=== PATIENT | male | born 1950 | race Caucasian/White ===

== ENCOUNTER 2019-02-02 13:19 | Emergency (ER) | payer MEDICARE ==
[~2019-02-02] VITALS: Ht 177.8 cm; Wt 95.5 kg
[~2019-02-02 13:19] MED LIST: DULO30CA51 PO; LEVO25TA7 PO; METF-950 PO; METO-292 PO; PROM25TA14 PO; RANI300T4 PO
[2019-02-02 13:55] LABS: BASOPHILS % (AUTO) 0.7 % (0-1); EOSINOPHILS # (AUTO) 0.1 X10'3 (0-0.9); EOSINOPHILS % (AUTO) 1.4 % (0-6); HEMATOCRIT 41.1 % (42.0-52.0); HEMOGLOBIN 14.1 g/dl (14.0-17.9); LYMPHOCYTES # (AUTO) 1.2 X10'3 (1.1-4.8); LYMPHOCYTES % (AUTO) 17.3 % (21-51); MEAN CORPUSCULAR HEMOGLOBIN 32.5 PG (27.0-31.0); MEAN CORPUSCULAR HGB CONC 34.3 g/dL (33.0-36.5); MEAN CORPUSCULAR VOLUME 94.6 FL (78-98); MONOCYTES # (AUTO) 0.9 X10'3 (0-0.9); MONOCYTES % (AUTO) 12.6 % (2-12); NEUTROPHILS # (AUTO) 4.7 X10'3 (1.8-7.7); PLATELET COUNT 224 X10'3 (140-440); RED BLOOD COUNT 4.34 X10'6 (4.70-6.10); RED CELL DISTRIBUTION WIDTH 13.3 % (11.5-14.5)
[2019-02-02 14:19] LABS: ALANINE AMINOTRANSFERASE 28 U/L (12-78); ALBUMIN 3.6 G/DL (3.4-5.0); ALBUMIN/GLOBULIN RATIO 1.1 (1.1-1.5); ALKALINE PHOSPHATASE 84 IU/L (46-116); ANION GAP 6 (8-16); ASPARTATE AMINO TRANSFERASE 17 U/L (10-37); BLOOD UREA NITROGEN 17 MG/DL (7-18); CHLORIDE 106 MMOL/L (99-107); CREATININE 0.81 MG/DL (0.60-1.10); GLUCOSE 123 MG/DL (70-104); POTASSIUM 3.9 MMOL/L (3.5-5.1); SODIUM 141 MMOL/L (135-145); TOTAL CARBON DIOXIDE 29.1 MMOL/L (24-32); TOTAL PROTEIN 6.9 G/DL (6.4-8.2); eGFR > 90 ML/MIN
[2019-02-02 14:25] LABS: PARTIAL THROMBOPLASTIN TIME 26 SECONDS (22-32)
[2019-02-02 17:08] VITALS: BP 160/94
== END 2019-02-02 17:16 | disposition home or self-care (01) ==
LOC: ER 13:20
DX: R00.1 Bradycardia, unspecified (principal); R07.89 Other chest pain; R42 Dizziness and giddiness; R53.83 Other fatigue; K21.9 Gastro-esophageal reflux disease without esophagitis; E11.9 Type 2 diabetes mellitus without complications; E03.9 Hypothyroidism, unspecified; Z90.49 Acquired absence of other specified parts of digestive tract; F12.90 Cannabis use, unspecified, uncomplicated; Z79.84 Long term (current) use of oral hypoglycemic drugs; Z79.899 Other long term (current) drug therapy
CPT/HCPCS: 36415; 71045; 80053; 84484; 85025; 85610; 85730; 93005; 99284

== ENCOUNTER 2024-08-28 14:05 | Observation (INO) | payer MEDICARE, MEDICAID ==
[~2024-08-28] VITALS: Ht 172.7 cm; Wt 80.0 kg
[~2024-08-28 14:05] MED LIST changes: -DULO30CA51 PO; +DULO30CA52 PO; +METF-1203 PO; -METF-950 PO
[2024-08-28 14:48] LABS: BASOPHILS % (AUTO) 0.5 % (0-1); EOSINOPHILS # (AUTO) 0.1 X10'3 (0-0.9); EOSINOPHILS % (AUTO) 2.2 % (0-6); HEMATOCRIT 40.6 % (42.0-52.0); HEMOGLOBIN 13.8 g/dl (14.0-17.9); LYMPHOCYTES # (AUTO) 1.1 X10'3 (1.1-4.8); LYMPHOCYTES % (AUTO) 18.5 % (21-51); MEAN CORPUSCULAR HEMOGLOBIN 32.5 PG (27.0-31.0); MEAN CORPUSCULAR HGB CONC 33.9 g/dL (33.0-36.5); MEAN CORPUSCULAR VOLUME 95.9 FL (78-98); MEAN PLATELET VOLUME 6.5 FL (7.4-10.4); MONOCYTES # (AUTO) 0.7 X10'3 (0-0.9); MONOCYTES % (AUTO) 11.2 % (2-12); NEUTROPHILS # (AUTO) 4.1 X10'3 (1.8-7.7); NEUTROPHILS % (AUTO) 67.6 % (42-75); PLATELET COUNT 268 X10'3 (140-440); RED BLOOD COUNT 4.23 X10'6 (4.70-6.10); RED CELL DISTRIBUTION WIDTH 13.8 % (11.5-14.5); WHITE BLOOD COUNT 6.1 X10'3 (4.5-11.0)
[2024-08-28 15:01] LABS: ALANINE AMINOTRANSFERASE 24 U/L (12-78); ALBUMIN 3.8 G/DL (3.4-5.0); ALBUMIN/GLOBULIN RATIO 1.4 (1.1-1.5); ALKALINE PHOSPHATASE 71 IU/L (46-116); ANION GAP 8 (8-16); ASPARTATE AMINO TRANSFERASE 19 U/L (10-37); BILIRUBIN,TOTAL 0.9 MG/DL (0.1-1.0); BLOOD UREA NITROGEN 13 MG/DL (7-18); BUN/CREATININE RATIO 19.4 (10.0-20.0); CALCIUM 8.3 MG/DL (8.5-10.1); CHLORIDE 105 MMOL/L (99-107); CREATININE 0.67 MG/DL (0.60-1.10); POTASSIUM 4.2 MMOL/L (3.5-5.1); SODIUM 140 MMOL/L (135-145); TOTAL CARBON DIOXIDE 26.9 MMOL/L (24-32); TOTAL PROTEIN 6.6 G/DL (6.4-8.2); eCRCL 95 ML/MIN; eGFR > 90 ML/MIN
[2024-08-28 15:13] LABS: GLUCOSE 101 MG/DL (70-104)
[2024-08-28] MEDS ORDERED: magnesium sulf-water 2g/50mL 50 ML IV PRN (19:05)
[2024-08-28] MEDS ORDERED: magnesium Cl slow-release 64mg tablet PO PRN (19:05)
[2024-08-28] MEDS ORDERED: potassium Cl 20 mEq SR tablet PO PRN ×2 (19:05)
[2024-08-28] MEDS ORDERED: ondansetron/PF 4mg/2ml inj IV PRN (19:05)
[2024-08-28] MEDS ORDERED: metoclopramide 5 mg/ml inj IV PRN (19:05)
[2024-08-28] MEDS ORDERED: acetaminophen 325mg tablet PO PRN (19:05)
[2024-08-28] MEDS ORDERED: magnesium sulf-water 4G/100mL 100 ML IV PRN (19:05)
[2024-08-28] MEDS ORDERED: potassium Cl 40MEQ/1/2NS 520ml 520 ML IV PRN (19:05)
[2024-08-28] MEDS: PERFLUTREN PROTEIN-A MICROSPHR (Optison) 0.22 MG/ML 3ML VIAL IV ONE (19:27)
[2024-08-28] MEDS: normal saline 1000ml 1,000 ML IV SCH (19:41)
[2024-08-28] MEDS: K and/or MAG REPLACEMENT MC SCH (20:00)
[2024-08-29 03:10] VITALS: BP_SYST 133; BP_SYST 134; BP_SYST 148; BP_DIAS 60; BP_DIAS 68; BP_DIAS 70; PULSE 55; PULSE 57; PULSE 59
[2024-08-29 06:00] VITALS: BP 145/74; PULSE 68; RESP 16; TEMP 98.1; O2SAT 98
[2024-08-29 07:13] LABS: BASOPHILS % (AUTO) 0.8 % (0-1); EOSINOPHILS # (AUTO) 0.1 X10'3 (0-0.9); HEMATOCRIT 41.3 % (42.0-52.0); LYMPHOCYTES # (AUTO) 1.7 X10'3 (1.1-4.8); LYMPHOCYTES % (AUTO) 27.1 % (21-51); MEAN CORPUSCULAR HEMOGLOBIN 32.2 PG (27.0-31.0); MEAN CORPUSCULAR HGB CONC 33.8 g/dL (33.0-36.5); MEAN CORPUSCULAR VOLUME 95.4 FL (78-98); MEAN PLATELET VOLUME 6.9 FL (7.4-10.4); MONOCYTES # (AUTO) 0.7 X10'3 (0-0.9); MONOCYTES % (AUTO) 11.2 % (2-12); NEUTROPHILS # (AUTO) 3.6 X10'3 (1.8-7.7); NEUTROPHILS % (AUTO) 58.9 % (42-75); PLATELET COUNT 276 X10'3 (140-440); RED BLOOD COUNT 4.34 X10'6 (4.70-6.10); WHITE BLOOD COUNT 6.1 X10'3 (4.5-11.0)
[2024-08-29 08:00] VITALS: BP_SYST 137; BP_SYST 144; BP_SYST 145; BP_DIAS 66; BP_DIAS 69; BP_DIAS 77; PULSE 57; PULSE 62; RESP 16; O2SAT 98
[2024-08-29 08:17] LABS: ALBUMIN 3.7 G/DL (3.4-5.0); ANION GAP 8 (8-16); BLOOD UREA NITROGEN 11 MG/DL (7-18); BUN/CREATININE RATIO 15.9 (10.0-20.0); CALCIUM 8.4 MG/DL (8.5-10.1); CHLORIDE 108 MMOL/L (99-107); CREATININE 0.69 MG/DL (0.60-1.10); GLUCOSE 99 MG/DL (70-104); POTASSIUM 4.1 MMOL/L (3.5-5.1); SODIUM 143 MMOL/L (135-145); TOTAL CARBON DIOXIDE 26.7 MMOL/L (24-32); eCRCL 92 ML/MIN; eGFR > 90 ML/MIN
[2024-08-29 10:00] VITALS: BP 110/71; PULSE 58; RESP 18; TEMP 98.3; O2SAT 96
[2024-08-29] MEDS: LORazepam 2 mg/ml vial IV ONE (11:59)
[2024-08-29] MEDS ORDERED: EMPA25TA PO (17:39)
[2024-08-29] MEDS ORDERED: GABA-530 PO (17:39)
[2024-08-29] MEDS ORDERED: VENL37.589 PO (17:39)
[2024-08-29] MEDS: venlafaxine XR 37.5mg cap (Q24H) PO SCH (17:45)
[2024-08-29] MEDS: gabapentin 100mg capsule PO SCH (20:21)
[2024-08-29 22:00] VITALS: BP 122/53; PULSE 53; RESP 16; TEMP 98.2; O2SAT 97
[2024-08-30 06:00] VITALS: BP 136/80; PULSE 83; RESP 16; TEMP 97; O2SAT 97
[2024-08-30 06:42] LABS: BASOPHILS % (AUTO) 0.7 % (0-1); EOSINOPHILS # (AUTO) 0.1 X10'3 (0-0.9); EOSINOPHILS % (AUTO) 2.3 % (0-6); HEMATOCRIT 41.3 % (42.0-52.0); LYMPHOCYTES # (AUTO) 1.5 X10'3 (1.1-4.8); LYMPHOCYTES % (AUTO) 24.1 % (21-51); MEAN CORPUSCULAR HEMOGLOBIN 32.6 PG (27.0-31.0); MEAN CORPUSCULAR HGB CONC 33.9 g/dL (33.0-36.5); MEAN CORPUSCULAR VOLUME 96.1 FL (78-98); MEAN PLATELET VOLUME 6.9 FL (7.4-10.4); MONOCYTES # (AUTO) 0.7 X10'3 (0-0.9); MONOCYTES % (AUTO) 11.3 % (2-12); NEUTROPHILS # (AUTO) 3.7 X10'3 (1.8-7.7); NEUTROPHILS % (AUTO) 61.6 % (42-75); PLATELET COUNT 271 X10'3 (140-440); RED BLOOD COUNT 4.29 X10'6 (4.70-6.10); RED CELL DISTRIBUTION WIDTH 14.3 % (11.5-14.5); WHITE BLOOD COUNT 6.1 X10'3 (4.5-11.0)
[2024-08-30 07:12] LABS: ANION GAP 11 (8-16); BLOOD UREA NITROGEN 12 MG/DL (7-18); BUN/CREATININE RATIO 16.7 (10.0-20.0); CALCIUM 8.7 MG/DL (8.5-10.1); CHLORIDE 107 MMOL/L (99-107); CREATININE 0.72 MG/DL (0.60-1.10); GLUCOSE 122 MG/DL (70-104); POTASSIUM 3.9 MMOL/L (3.5-5.1); SODIUM 142 MMOL/L (135-145); TOTAL CARBON DIOXIDE 23.9 MMOL/L (24-32); eCRCL 88 ML/MIN; eGFR > 90 ML/MIN
[2024-08-30 07:13] LABS: ALBUMIN 3.4 G/DL (3.4-5.0)
[2024-08-30 10:00] VITALS: BP 114/65; PULSE 63; RESP 12; TEMP 98.5; O2SAT 94
== END 2024-08-30 15:20 | disposition home or self-care (01) ==
LOC: ER 14:05 → ED HOLD 19:08 → EDBEDREQ 08-29 01:12 → ORTHO 4S 08-29 02:12
PROVIDERS: ADMIT Internal Medicine; ATTEND Internal Medicine
DX: R55 Syncope and collapse (principal); E11.649 Type 2 diabetes mellitus with hypoglycemia without coma; E11.51 Type 2 diabetes mellitus with diabetic peripheral angiopathy without gangrene; E11.40 Type 2 diabetes mellitus with diabetic neuropathy, unspecified; E03.9 Hypothyroidism, unspecified; E78.00 Pure hypercholesterolemia, unspecified; K21.9 Gastro-esophageal reflux disease without esophagitis; F32.A Depression, unspecified; F02.83 Dementia in other diseases classified elsewhere, unspecified severity, with mood disturbance; G30.9 Alzheimer's disease, unspecified; I11.0 Hypertensive heart disease with heart failure; I50.9 Heart failure, unspecified; I25.2 Old myocardial infarction; I25.10 Atherosclerotic heart disease of native coronary artery without angina pectoris; Z79.84 Long term (current) use of oral hypoglycemic drugs; Z86.73 Personal history of transient ischemic attack (TIA), and cerebral infarction without residual deficits; Z95.1 Presence of aortocoronary bypass graft; Z86.74 Personal history of sudden cardiac arrest
CPT/HCPCS: 70551; 80048; 80053; 83036; 83735; 84484; 93005; 93306; 93880; 96361; 96374; 97161; 99291; G0378; 36415; 71045; 85025; 87081; 97530; J2060; J7030

== ENCOUNTER 2025-01-22 05:31 | Inpatient (IN) | payer MEDICARE, MEDICAID ==
[2025-01-13 11:47] LABS: BASOPHILS % (AUTO) 0.7 % (0-1); EOSINOPHILS # (AUTO) 0.1 X10'3 (0-0.9); EOSINOPHILS % (AUTO) 1.4 % (0-6); LYMPHOCYTES # (AUTO) 1.1 X10'3 (1.1-4.8); LYMPHOCYTES % (AUTO) 25.8 % (21-51); MEAN CORPUSCULAR HEMOGLOBIN 31.9 PG (27.0-31.0); MEAN CORPUSCULAR HGB CONC 34.4 g/dL (33.0-36.5); MEAN CORPUSCULAR VOLUME 92.9 FL (78-98); MEAN PLATELET VOLUME 6.7 FL (7.4-10.4); MONOCYTES # (AUTO) 0.5 X10'3 (0-0.9); MONOCYTES % (AUTO) 11.6 % (2-12); NEUTROPHILS # (AUTO) 2.7 X10'3 (1.8-7.7); NEUTROPHILS % (AUTO) 60.5 % (42-75); PRE OP HEMATOCRIT 45.6 % (42.0-52.0); PRE OP HEMOGLOBIN 15.7 g/dL (14.0-17.9); PRE OP PLATELET COUNT 212 X10'3 (140-440); PRE OP WHITE BLOOD COUNT 4.5 10'3 (4.8-10.8); RED BLOOD COUNT 4.91 X10'6 (4.70-6.10); RED CELL DISTRIBUTION WIDTH 13.6 % (11.5-14.5)
--- NOTE | 2025-01-13 11:50 | ELECTROCARDIOGRAPH REPORT ---
[facility] Test Date: 2025-01-13 Test Time: 11:47:01 Pat Name: NICHOLAS LUCERO Department: PRE/OP CARDIOLOGY Patient ID: [id number] Room: Gender: M Ready To Wear Department Manager: SAMMY : 1950 Requested By: DEBBIE MONTENEGRO Order Number: [id number] Reading MD: Dr. NAMRATA Woods Measurements Intervals [place] Rate: 53 P: 71 WI: 212 QRS: 71 QRSD: 101 T: -15 QT: 428 QTc: 402 Interpretive Statements Sinus bradycardia Borderline prolonged WI interval Borderline T abnormalities, inferior leads Electronically Signed On 01-13-2025 20:04:[address] NAMRATA Woods Please click the below link to view image of tracing.
[2025-01-13 12:01] LABS: PRE OP PROTIME 10.7 SECONDS (9.0-12.0)
[2025-01-13 12:04] LABS: ALBUMIN 4.1 G/DL (3.4-5.0); ALBUMIN/GLOBULIN RATIO 1.3 (1.1-1.5); ALKALINE PHOSPHATASE 61 IU/L (46-116); BLOOD UREA NITROGEN 21 MG/DL (7-18); BUN/CREATININE RATIO 22.1 (10.0-20.0); CALCIUM 8.6 MG/DL (8.5-10.1); CHLORIDE 100 MMOL/L (99-107); CREATININE 0.95 MG/DL (0.60-1.10); PRE OP ALT 32 U/L (30-65); PRE OP ANION GAP 9 (8-16); PRE OP AST 29 U/L (10-37); PRE OP BILIRUB, TOTAL 1.5 MG/DL (0.0-1.0); PRE OP GLUCOSE 110 MG/DL (70-104); PRE OP POTASSIUM 3.7 MMOL/L (3.4-5.1); PRE OP SODIUM 138 MMOL/L (135-145); TOTAL CARBON DIOXIDE 28.8 MMOL/L (24-32); TOTAL PROTEIN 7.3 G/DL (6.4-8.2); eGFR 77 ML/MIN
[2025-01-13 12:31] LABS: BILIRUBIN,URINE NEGATIVE (Neg); CLARITY,URINE CLEAR (Clear); COLOR,URINE YELLOW (Yellow); GLUCOSE, URINE >=1000 mg/dl (Neg); KETONES,URINE 40 mg/dl (Neg); LEUKOCYTE ESTERASE ,URINE NEGATIVE (Neg); NITRITES, URINE NEGATIVE (Neg); OCCULT BLOOD,URINE NEGATIVE (Neg); PROTEIN,URINE NEGATIVE (Neg); UROBILINOGEN,URINE 0.2 E.U/dL (0.2-1.0)
[2025-01-13 12:33] LABS: UA COLLECTION TYPE VOIDED
[2025-01-13 12:41] LABS: BACTERIA,URINE NONE SEEN /HPF (Neg); MUCUS STRANDS NONE SEEN /LPF (Neg); RBC,URINE NONE SEEN /HPF (0-2); SQUAMOUS EPITHELIAL CELL,UR FEW /LPF (FEW); WBC,URINE NONE SEEN /HPF (0-4)
--- NOTE | 2025-01-13 12:57 | RADIOLOGY REPORT ---
DI CHEST,TWO VIEWS, HISTORY: PREOP COMPARISON: None None TECHNICAL DATA: 2 view of the chest was obtained. FINDINGS: Lines and tubes: None Cardiomediastinal silhouette: normal Pulmonary vasculature: normal Lung expansion: normal Lung airspace: normal Lung interstitium: normal Pleura: normal Pneumothorax: no Bones: Unremarkable Other: Skin jayna are seen. IMPRESSION: No acute intrathoracic abnormality.
[2025-01-22] VITALS (35 sets, daily range): BP systolic 93–140; BP diastolic 48–99; PULSE 60–77; RESP 11–21; TEMP 97.2–98.4; O2SAT 91–99
[~2025-01-22] VITALS: Ht 175.3 cm; Wt 77.2 kg
[~2025-01-22 05:31] MED LIST changes: +APIX5TAB3 PO; +ATOR40TA72 PO; -DULO30CA52 PO; +EMPA25TA PO; +FEXO-236 PO; +GABA-530 PO; -LEVO25TA7 PO; -METF-1203 PO; -METO-292 PO; +OMEP20CA16 PO; +ONDA-103 PO; -PROM25TA14 PO; -RANI300T4 PO; +TRAZ-251 PO; +VENL37.589 PO; +ondansetron 4mg rapidly disintigrating tab PO PRN
[2025-01-22] MEDS: famotidine 20mg tablet PO ONE (06:12)
[2025-01-22] MEDS: ringers solution, lacted 1,000 ML IV SCH ×2 (06:13→08:06)
[2025-01-22] MEDS: VANCOMYCIN/H2O 1.5g/300mL PB 300 ML IV ONE (06:14)
[2025-01-22] MEDS: ceFAZolin 2gm/dext,iso 50mL 50 ML IV ONE (06:15)
[2025-01-22] MEDS ORDERED: iohexol 350MG/ML 100ml bottle IV ONE (06:53)
[2025-01-22] MEDS ORDERED: heparin 1,000 UNITS/NS 500ml 1,500 ML ONE (06:53)
[2025-01-22] MEDS ORDERED: fentaNYL/PF 50MCG/1 ML 2ML syringe ONE (07:16)
[2025-01-22] MEDS ORDERED: midazolam 1 mg/ML 2ml injection ONE (07:16)
[2025-01-22] MEDS ORDERED: propofol inj 20 ML IV ONE (07:18)
[2025-01-22] MEDS ORDERED: sugammadex 200mg/2ml injection IV ONE (07:25)
[2025-01-22] MEDS ORDERED: heparin 1,000unit/ml 10ml vial 10 ML ONE (07:26)
[2025-01-22] MEDS ORDERED: dexamethasone sod phosphate 4mg/ml inj. ONE (07:26)
[2025-01-22] MEDS ORDERED: rocuronium 10mg/ml inj IV ONE (07:42)
[2025-01-22] MEDS ORDERED: ondansetron/PF 4mg/2ml inj ONE (07:51)
[2025-01-22] MEDS ORDERED: potassium CL 10mEq/100ml bag 100 ML IV PRN (08:00)
[2025-01-22] MEDS ORDERED: hydrALAZINE 20mg/ml inj. IV PRN ×2 (08:00→08:10)
[2025-01-22] MEDS ORDERED: potassium Cl 40MEQ/1/2NS 520ml 520 ML IV PRN (08:00)
[2025-01-22] MEDS ORDERED: pantoprazole 40mg Tablet.DR PO PRN (08:00)
[2025-01-22] MEDS ORDERED: potassium Cl 20 mEq SR tablet PO PRN (08:00)
[2025-01-22] MEDS ORDERED: labetalol 20mg/4ml (5mg/ml) syringe IV PRN ×2 (08:00→08:10)
[2025-01-22] MEDS ORDERED: proCHLORperazine 10 MG/2 ml inj IV PRN (08:00)
[2025-01-22] MEDS ORDERED: potassium Cl 40MEQ/270ML bag 250 ML IV PRN (08:00)
[2025-01-22] MEDS ORDERED: magnesium sulf-water 4G/100mL 100 ML IV PRN (08:00)
[2025-01-22] MEDS ORDERED: diphenhydrAMINE 25mg capsule PO PRN (08:00)
[2025-01-22] MEDS ORDERED: magnesium sulf-water 2g/50mL 50 ML IV PRN (08:00)
[2025-01-22] MEDS ORDERED: docusate sod 100mg capsule PO PRN (08:00)
[2025-01-22] MEDS ORDERED: potassium Cl 20mEq/100mL bag 100 ML IV PRN (08:00)
[2025-01-22] MEDS ORDERED: ondansetron 4mg rapidly disintigrating tab PO PRN (08:05)
--- NOTE | 2025-01-22 08:06 | OPERATIVE REPORT ---
Operative Report Providers to CC: CHARANJIT RAMIREZ MD ~ Date of Procedure: January 22, 2025 Pre-Operative Diagnosis: Atrial Fibrillation with high bleeding risk Post-Operative Diagnosis SAME as PRE-Op Procedure Performed 1. Transseptal Puncture via MEY guidance 2. Left Atrial Appendogram 3. Left Atrial Appendage closure with 27mm Watchman FLX Pro Pro Device 4. Ultrasound guided access, right Femoral Vein Surgeon: Debbie Ramirez MD Editor Publications n/a Anesthesiologist: Rj Kramer Type of Anesthesia: General Findings: Left Atrial appendage amenable to percutaneous closure. Complications None Prosthetics\\Implants used: 27mm Watchman Flx Pro Estimated Blood Loss: Minimal Specimen Removed: None Description of Procedure: The patient was brought to the dairy laboratory technician in a fasting state. They underwent General anesthesia. Ultrasound was used to guide access to the right femoral vein where two Perclose devices were placed and upsized to an 8Fr sheath. Heparin was given to maintain an ACT over 250 seconds. An 0.035" wire was advanced into the SVC. The 8Fr sheath was then removed and the 8.5Fr VersaCross Transseptal sheath was advanced into the SVC. The RF wire was then advanced to the tip of the sheath/dilator. Using MEY guidance, appropriate position of the tip of the sheath was determined and using an energized wire tip, advanced into the left atrium. The sheath and dilator were then advanced over the wire into the left atrium. Over the wire, the Versacross sheath was removed and exchanged for the Watchman TruSteer Sheath. The wire and dilator were then removed and exchanged for a 5Fr pigtail catheter which was placed into the left atrial appendage and an appendogram performed in the OLSON- Caudal position. There, ACT was confirmed to be therapeutic. The Watchman sheath was then advanced into the left atrial appendage over the pigtail catheter. Once appropriate position was determined, the pigtail was removed, the 27mm Watchman FLX device and delivery system were advanced into the tip of the sheath. The delivery system was advanced until an appropriate FLX ball was formed. The guide was then retracted and the Watchman device was unsheathed will full deployment in the appendage. Next, PASS criteria was performed confirming adequate positioning and anchoring(using a tug-test), sizing showing adequate compression, and no significant leak around the device. Another Appendogram was performed confirming placement. The device was then released from the delivery system. The guide and delivery system were removed and the perclose tied as well as the ecmvqi-jp-qfocn suture, ensuring adequate hemostasis. Mean LA Presssure: 13mmHg Contrast: 16cc Device Compression: 18-22% RESULTS: 1. Successful Left-Atrial Appendage closure with a 27mm Watchman FLX Pro device 2. Right Femoral Vein access, closed with Perclose x 2 and Bmjmgo-js-Sratv suture 3. Resume Eliquis 5mg BID x 45days with repeat imaging at that time. If sealed without evidence of device related thrombosis, can stop OAC and start ASA 81mg QD indefinitely, plavix 75mg QD x 6 months. They will be watched in the recovery area until stable, then transferred to the telemetry at that time. DEBBIE RAMIREZ MD January 22, 2025 08:06
[2025-01-22] MEDS ORDERED: morphine 4 MG/ML inj SYRINge IV PRN (08:10)
[2025-01-22] MEDS ORDERED: morphine 2 MG/ML inj. syringe IV PRN (08:10)
[2025-01-22] MEDS ORDERED: HYDROmorphone/PF 0.2 MG/ML SYRINGE IV PRN ×2 (08:10)
[2025-01-22] MEDS ORDERED: ondansetron/PF 4mg/2ml inj IV PRN (08:10)
[2025-01-22] MEDS ORDERED: acetaminophen 1,000mg/100ml IV 100 ML IV PRN (08:10)
--- NOTE | 2025-01-22 08:35 | ELECTROCARDIOGRAPH REPORT ---
[facility] Test Date: 2025-01-22 Test Time: 08:31:38 Pat Name: NICHOLAS LUCERO Department: [facility] [place] Patient ID: [facility]-[id number] Room: [facility] [address] Gender: M Patient Accounts Coordinator: SAMMY : 1950 Requested By: DEBBIE MONTENEGRO Order Number: [id number] Reading MD: Dr. NAMRATA Woods Measurements Intervals [place] Rate: 58 P: 64 MD: 210 QRS: 63 QRSD: 101 T: 69 QT: 412 QTc: 405 Interpretive Statements Sinus rhythm Probable anteroseptal infarct, old Electronically Signed On 01-22-2025 11:05:[address] NAMRATA Woods Please click the below link to view image of tracing.
[2025-01-22] MEDS: sod chloride 0.9% 10ml flush syringe IV SCH (10:30)
[2025-01-22] MEDS: normal saline 1000ml 1,000 ML IV SCH (12:42)
[2025-01-22] MEDS: gabapentin 100mg capsule PO SCH (13:50)
[2025-01-22] MEDS: ceFAZolin/D5W- 1GM premix 50 ML IV SCH (16:33)
[2025-01-22] MEDS: apixaban 5mg tablet PO SCH (21:37)
[2025-01-22] MEDS: vancomycin/NS 1 GM ADD-VANTAGE 250 ML IV SCH (21:37)
[2025-01-22] MEDS: traZODone 50mg tablet PO SCH (21:37)
[2025-01-22] MEDS: pantoprazole 40mg Tablet.DR PO SCH (21:37)
[2025-01-22] MEDS: acetaminophen 325mg tablet PO PRN (23:59)
[2025-01-22] MEDS: ALPRAZolam 0.25mg tablet PO PRN (23:59)
[2025-01-23] MEDS: ondansetron/PF 4mg/2ml inj IV PRN (00:21)
[2025-01-23 01:52] VITALS: RESP 19; O2SAT 96
[2025-01-23] MEDS: HYDROcodone/acetaminophen 5mg/325mg tablet PO PRN (03:06)
--- NOTE | 2025-01-23 06:44 | RADIOLOGY REPORT ---
CHEST RADIOGRAPH Indication: s/p Watchman Technique: Single frontal view of the chest was obtained Comparison: DI CHEST,SINGLE VIEW on DOS: 08/28/24 IMPRESSION: Heart appears normal in size. The lungs appear clear without focal airspace opacity, effusion, or pn eumothorax. Watchman device is present.
[2025-01-23 06:49] LABS: BASOPHILS % (AUTO) 0.2 % (0-1); EOSINOPHILS % (AUTO) 0.1 % (0-6); HEMATOCRIT 38.8 % (42.0-52.0); HEMOGLOBIN 13.3 g/dl (14.0-17.9); LYMPHOCYTES # (AUTO) 1.4 X10'3 (1.1-4.8); LYMPHOCYTES % (AUTO) 13.8 % (21-51); MEAN CORPUSCULAR HEMOGLOBIN 31.8 PG (27.0-31.0); MEAN CORPUSCULAR HGB CONC 34.3 g/dL (33.0-36.5); MEAN CORPUSCULAR VOLUME 92.8 FL (78-98); MEAN PLATELET VOLUME 6.9 FL (7.4-10.4); MONOCYTES # (AUTO) 1.1 X10'3 (0-0.9); MONOCYTES % (AUTO) 10.5 % (2-12); NEUTROPHILS # (AUTO) 7.6 X10'3 (1.8-7.7); NEUTROPHILS % (AUTO) 75.4 % (42-75); PLATELET COUNT 217 X10'3 (140-440); RED BLOOD COUNT 4.18 X10'6 (4.70-6.10); RED CELL DISTRIBUTION WIDTH 14.3 % (11.5-14.5); WHITE BLOOD COUNT 10.1 X10'3 (4.5-11.0)
[2025-01-23 06:53] LABS: INR 1.1 INR; PROTHROMBIN TIME 10.9 SECONDS (9.0-12.0)
[2025-01-23 06:55] VITALS: BP 115/51; PULSE 87; RESP 17; TEMP 97.5; O2SAT 95
[2025-01-23 07:10] LABS: ALANINE AMINOTRANSFERASE 18 U/L (12-78); ALBUMIN 3.2 G/DL (3.4-5.0); ALBUMIN/GLOBULIN RATIO 1.2 (1.1-1.5); ALKALINE PHOSPHATASE 44 IU/L (46-116); ANION GAP 9 (8-16); ASPARTATE AMINO TRANSFERASE 20 U/L (10-37); BLOOD UREA NITROGEN 19 MG/DL (7-18); BUN/CREATININE RATIO 23.5 (10.0-20.0); CALCIUM 8.4 MG/DL (8.5-10.1); CHLORIDE 102 MMOL/L (99-107); CREATININE 0.81 MG/DL (0.60-1.10); GLUCOSE 115 MG/DL (70-104); MAGNESIUM 1.8 MG/DL (1.5-2.4); POTASSIUM 3.8 MMOL/L (3.5-5.1); PRO BRAIN NATRIURETIC PEPTIDE 221 PG/ML (0-125); SODIUM 138 MMOL/L (135-145); TOTAL CARBON DIOXIDE 26.8 MMOL/L (24-32); TOTAL PROTEIN 5.8 G/DL (6.4-8.2); eCRCL 80 ML/MIN; eGFR > 90 ML/MIN
--- NOTE | 2025-01-23 07:24 | ELECTROCARDIOGRAPH REPORT ---
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 Aparna Ramirez Measurements Intervals [place] Rate: 79 P: 41 ID: [id number] QRS: 31 QRSD: 99 T: 59 QT: 367 QTc: 421 Interpretive Statements Sinus rhythm Borderline T wave abnormalities Electronically Signed On 01-25-2025 20:53:[address] Aparna Ramirez Please click the below link to view image of tracing.
--- NOTE | 2025-01-23 07:36 | CARDIOLOGY REPORT ---
APPROVED REPORT EXAM: Focused, limited intraprocedural transesophageal 2D, spectral and color flow Doppler echocardio gram during WATCHMAN deployment. 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 Overall systolic function is mildly reduced. LVEF is 45%. RIGHT VENTRICLE RV is mildly increased in size with mildly reduced function. ATRIA LA appears moderately dilated. Whale -tail shaped appendage without thrombus detected. Left upper pul monary vein identified. Intact interatrial septum. Width / length averages are: 0degr 20 x 18 mm; 45d egr18 x 24 mm; 91iimq21 x 24 mm; 103hqct38 x 22 mm. Loop 22: Septal tenting visualized with RF atrial septal puncture performed. Loop 25 : Wire in LA. Pigtail advanced to tip of appendage. LA pressure i s measured at: 13 mmHG. Loop 27: Appendagram performed. Loop 29: Flex ball deployed. 27 mm Watchman FLX device, PASS criteria attempted. Loop32: Successful "TUG" test performed. PASS reassessed. Ragan l compression obtained - shoulder to shoulder measurement is: 21.75mm. Loop 42: Device released. Beckham nt interatrial septum with small residual left to right shunt (s/p transseptal puncture). Successfull y occluded left atrial appendage with Watchman device well positioned without thrombus. No residual f low around device detected. No pericardial effusion post-implant. AORTIC VALVE Trileaflet AV appears minimally sclerotic without obvious stenosis or insufficiency. PERICARDIUM Normal pericardium. No effusion. CONCLUSION Normal LV size and wall thickness. Overall systolic function is mildly reduced. LVEF is 45%. RV is mi ldly increased in size with mildly reduced function. LA appears moderately dilated. Whale -tail shape d appendage without thrombus detected. Left upper pulmonary vein identified. Intact interatrial septu m. Width / length averages are: 0degr 20 x 18 mm; 03xmiy62 x 24 mm; 78jses47 x 24 mm; 204dyui12 x 22 mm. Loop 22: Septal tenting visualized with RF atrial septal puncture performed. Loop 25 : Wire in LA . Pigtail advanced to tip of appendage. LA pressure is measured at: 13 mmHG. Loop 27: Appendagram pe rformed. Loop 29: Flex ball deployed. 27 mm Watchman FLX device, PASS criteria attempted. Loop32: Suc cessful "TUG" test performed. PASS reassessed. Optimal compression obtained - shoulder to shoulder me asurement is: 21.75mm. Loop 42: Device released. Patent interatrial septum with small residual left t o right shunt (s/p transseptal puncture). Successfully occluded left atrial appendage with Watchman d evice well positioned without thrombus. No residual flow around device detected. No pericardial effus ion post-implant. Trileaflet AV appears minimally sclerotic without obvious stenosis or insufficiency . Normal pericardium. No effusion. Conclusion Normal LV size and wall thickness. Overall systolic function is mildly reduced. LVEF is 45%. RV is mildly increased in size with mildly reduced function. LA appears moderately dilated. Whale -tail shaped appendage without thrombus detected. Left upper pul monary vein identified. Intact interatrial septum. Width / length averages are: 0degr 20 x 18 mm; 4 0kumd45 x 24 mm; 69rkps78 x 24 mm; 929mlpk07 x 22 mm. Loop 22: Septal tenting visualized with RF atrial septal puncture performed. Loop 25 : Wire in LA. Pigtail advanced to tip of appendage. LA pressure is measured at: 13 mmHG. Loop 27: Appendagram performed. Loop 29: Flex ball deployed. 27 mm Watchman FLX device, PASS criteria attempted. Loop32: Successful "TUG" test performed. PASS reass essed. Optimal compression obtained - shoulder to shoulder measurement is: 21.75mm. Loop 42: Device released. Patent interatrial septum with small residual left to right shunt (s/p transseptal punctur e). Successfully occluded left atrial appendage with Watchman device well positioned without thrombu s. No residual flow around device detected. No pericardial effusion post-implant. Trileaflet AV appears minimally sclerotic without obvious stenosis or insufficiency. Normal pericardium. No effusion.
[2025-01-23] MEDS: venlafaxine XR 37.5mg cap (Q24H) PO SCH (07:41)
[2025-01-23] MEDS: atorvastatin 20mg tablet PO SCH (07:41)
[2025-01-23] MEDS ORDERED: [UNRECOGNIZED DRUG - REMARK] PO SCH (08:00)
[2025-01-23 08:20] VITALS: RESP 16; O2SAT 96
[2025-01-24] MEDS ORDERED: ONDA-243 PO (13:32)
--- NOTE | 2025-01-24 15:44 | CARDIOLOGY REPORT ---
APPROVED REPORT EXAM: Limited 2D, Doppler, and color-flow Echocardiogram. Patient Location: [address] Blood Pressure: 115/51 mmHg Heart Rate: 68 bpm Rhythm: Sinus Rhythm Indications [employer] [facility] and WATCHMAN FLX CHRIS CLOSURE DEVICE IMPLANTATION 27mm WATCHMAN FLX CHRIS CLOSURE DEVICE Economic Research Analyst: Heath Ramirez MD Previous echo: 01/22/2025 [facility] EF: 45%, nl LV, mild RV, mod LA, sm L to R S/P puncture 2D Dimensions RVDd 3.9 cm LA Diam4.7 cm RA Minor4.3 cmIVC 19.49 mm CO 5.3 L/min M-Mode Dimensions IVSd 0.97 (0.7-1.1cm) LVDd 5.60 (4.0-5.6cm) PWd 0.99 (0.7-1.1cm) IVSs 1.19 cm LVDs 4.20 (2.0-3.8cm) FS (%) 25 % PWs 1.24 cm ESV(Teich) 76.9 ml LVEF(%) 49 (>50%) Tricuspid Valve TR P. Velocity 260 cm/s RAP ESTIMATE 10 mmHg TR Peak Gr. 27 mmHg RVSP 37 mmHg LEFT VENTRICLE Normal LV size and wall thickness. Overall systolic function is mildly reduced. Overall LVEF is 45-50 %. RIGHT VENTRICLE Right ventricle is mild to moderately dilated with mildly reduced function. Estimated PA systolic pre ssure is 37 mmHg. ATRIA LA is mild to moderately dilated. Mobile/intact interatrial septum with small L to R shunt s/p trans septal puncture by color Doppler. AORTIC VALVE Aortic valve is grossly normal in structure. MITRAL VALVE Normal MV annulus without obvious stenosis. Trace regurgitation. TRICUSPID VALVE TV appears structurally normal with trace regurgitation. PERICARDIUM Normal pericardium. No pericardial effusion seen. Other Information Study Quality: Adequate Conclusion Normal LV size and wall thickness. Overall systolic function is mildly reduced. Overall LVEF is 45-50 %. Right ventricle is mild to moderately dilated with mildly reduced function. Estimated PA systolic pre ssure is 37 mmHg. LA is mild to moderately dilated. Mobile/intact interatrial septum with small L to R shunt s/p tr ansseptal puncture by color Doppler. Aortic valve is grossly normal in structure. Normal MV annulus without obvious stenosis. Trace regurgitation. TV appears structurally normal with trace regurgitation. Normal pericardium. No pericardial effusion seen.
--- NOTE | 2025-01-28 16:27 | DISCHARGE SUMMARY ---
Discharge Summary Providers to CC CC: CHARANJIT MONTENEGRO MD ~ Discharge Summary Admission Diagnosis: Atrial Fibrillation with high bleeding risk Hospital Course DATE OF ADMISSION: 01/22/2025 DATE OF DISCHARGE: 01/23/2025 Discharge Diagnosis\Comment: Status post Left atrial appendage closure Operations\Procedures: 1. Transseptal Puncture via MEY guidance 2. Left Atrial Appendogram 3. Left Atrial Appendage closure with 27mm Watchman FLX Pro Pro Device 4. Ultrasound guided access, right Femoral Vein Consultants: None Complications: None Condition on DC: Stable Continued Medications: Apixaban (Eliquis) 5 Mg Tablet 1 TAB PO Q12H for 30 Days, #60 TAB 0 Refills Atorvastatin Calcium (Atorvastatin Calcium) 40 Mg Tablet 1 TAB PO DAILY Empagliflozin (Jardiance) 25 Mg Tablet 1 TAB PO DAILY Fexofenadine HCl (Allergy Relief) 180 Mg Tablet 1 TAB PO DAILY Gabapentin (Gabapentin) 100 Mg Capsule 1 CAP PO TID Omeprazole (Omeprazole) 20 Mg Capsule.dr 1 CAP PO BID for 30 Days, #30 CAP 0 Refills Ondansetron HCl (Ondansetron HCl) 4 Mg Tablet 1 TAB PO Q8H PRN for nausea/vomiting Trazodone HCl (Trazodone HCl) 50 Mg Tablet 1 TAB PO HS for 30 Days, #30 TAB 0 Refills Venlafaxine Hcl (Venlafaxine Hcl Er) 37.5 Mg Cap.sr.24h 1 CAP PO DAILY Discharge Summary: 74yo man with HTN, HLD, Atrial Fibrillation and high bleeding risk admitted status post left atrial occlusion with 27mm Watchman Flx Pro. Did well overnight without issues. --Resume Eliquis 5mg BID x 45days with repeat imaging at that time. If sealed without evidence of device related thrombosis, can stop OAC and start ASA 81mg QD indefinitely, plavix 75mg QD x 6 months.--Cont Eliquis 5mg BID x 45days with repeat imaging at that time. *Problems/Diagnosis: (1) Atrial fibrillation Total Time Spent on D/C: Up to 30 Minutes Counseling Services Smoking & Tobacco Cessation: N/A DEBBIE MONTENEGRO MD Jan 28, 2025 16:27
== END 2025-01-23 11:28 | disposition home or self-care (01) | DRG 274 ==
LOC: PAS IN 05:31 → PCU 3S 12:03
PROVIDERS: ADMIT Student in an Organized Health Care Education/Training Program; ATTEND Student in an Organized Health Care Education/Training Program
PROC: B24BZZ4 Ultrasonography of Heart with Aorta, Transesophageal (ICD-10-PCS; 2025-01-22)
PROC: 02L73DK Occlusion of Left Atrial Appendage with Intraluminal Device, Percutaneous Approach (ICD-10-PCS; principal; 2025-01-22 07:11)
DX: I48.91 Unspecified atrial fibrillation (principal); Z00.6 Encounter for examination for normal comparison and control in clinical research program; Z79.899 Other long term (current) drug therapy; Z79.01 Long term (current) use of anticoagulants
CPT/HCPCS: 33340; 36415; 71045; 71046; 76937; 80053; 81001; 82948; 83735; 83880; 85025; 85610; 85730; 86885; 86900; 86901; 86920; 93005; 93308; 93312; 93325; A4618; A6258; A6449; C1760; C1889; C1894; G0378; J0690; J1100; J1644; J2250; J2405; J2704; J3010; J3370; J3372; J3490; J7030; J7120; Q9967

== ENCOUNTER 2025-01-24 10:06 | Emergency (ER) | payer MEDICARE, MEDICAID ==
[~2025-01-24] VITALS: Ht 177.8 cm; Wt 78.0 kg
[~2025-01-24 10:06] MED LIST changes: -ondansetron 4mg rapidly disintigrating tab PO PRN
--- NOTE | 2025-01-24 10:09 | Physician Documentation ---
History of Present Illness ~ Stated Complaint: POST WATCHMAN PROC COMPLICATIONS Time Seen by MD: 10:07 Primary Medical Doctor: Robert TURNER This 74 yr old male who is s/p Watchman procedure by Dr. Heath Ramirez 01/22/25 presents to the ER reporting that he has had symptoms as of nausea, vomiting, dizziness, headache since yesterday. He denies chills, fever, chest pain, shortness of breath, black or bloody stools, or diarrhea. Dizziness is worsened by movement. 01/22/35 RESULTS: 1. Successful Left-Atrial Appendage closure with a 27mm Watchman FLX Pro device 2. Right Femoral Vein access, closed with Perclose x 2 and Cgbpje-dt-Tkuvm suture 3. Resume Eliquis 5mg BID x 45days with repeat imaging at that time. If sealed without evidence of device related thrombosis, can stop OAC and start ASA 81mg QD indefinitely, plavix 75mg QD x 6 months. They will be watched in the recovery area until stable, then transferred to the telemetry at that time. Medication Reconciliation Allergies: Coded Allergies: No Known Allergies (Unverified , 01/24/25) Scheduled Apixaban (Eliquis), 1 TAB PO Q12H, (Reported) Atorvastatin Calcium (Atorvastatin Calcium), 1 TAB PO DAILY, (Reported) Empagliflozin (Jardiance), 1 TAB PO DAILY, (Reported) Fexofenadine HCl (Allergy Relief), 1 TAB PO DAILY, (Reported) Gabapentin (Gabapentin), 1 CAP PO TID, (Reported) Omeprazole (Omeprazole), 1 CAP PO BID, (Reported) Trazodone HCl (Trazodone HCl), 1 TAB PO HS, (Reported) Venlafaxine Hcl (Venlafaxine Hcl Er), 1 CAP PO DAILY, (Reported) Scheduled PRN Ondansetron HCl (Ondansetron HCl), 1 TAB PO Q8H PRN for nausea/vomiting, (Reported) Past Medical History Past Medical History: GERD, Diabetes, Hypothyroidism, Depression Past Surgical History: no surgical history, cholecystectomy Patient History: (CAD) Coronary arteriosclerosis FATHER, Name: Nicholas Mckeon, , Age: 85, Cause: Parkinson disease, Onset:Unknown (DM Type1) Diabetes mellitus type 1 MOTHER, Name: Paulina Mckeon (hx parkinsons), , Age: 86, Cause: Diabetes, Onset:Adolescence Sister, Onset:Adolescence No Family History of: (CABG) Coronary artery bypass grafting (CHF) Congestive heart failure (COPD) Chronic obstructive lung disease (CVA) Cerebrovascular accident (Cancer) Malignant carcinoid tumor (DM Type 2) Diabetes mellitus type 2 ([place]) Myocardial infarction (PVD) Peripheral vascular disease (TIA) Transient ischemic attack Alzheimer's disease Aortic aneurysm Asthma Cardiac arrest Hypercholesterolemia Alcohol Use: None Drug Use: marijuana Lives with: Spouse Lives In: Home Occupation: employed Review of Systems ROS As stated above in the HPI, otherwise all systems are reviewed and negative. Physical Exam Physical Exam General: Alert, no apparent distress. HEENT: PERRL, EOMI, no injection, moist mucous membranes. Neck: Full range of motion. Respiratory: Lungs clear, no respiratory distress. Chest: No accessory muscle use. Steri-strips intact left upper chest, reportedly at site of recently removed loop recorder. No signs of infection at this site. Cardiovascular: Regular rate and rhythm, no murmurs. Gastrointestinal: Soft, nontender, nondistended. Bowels sounds present. Extremities: Normal range of motion, no deformity. Neurologic: Oriented x4. Psychiatric: Normal mood and affect. Skin: Normal color, warm and dry. No edema, no ecchymosis. Right groin site dressing CDI. Progress Progress Note 1117: RN reports critical troponin of 90. Results/Orders Results/Orders Orders - DANIELLA SALGADO RN LICENSED PRACTICAL Chest,Single View (01/24/25 10:16) Monitor (01/24/25 10:16) Saline Lock (01/24/25 10:16) Oxygen (01/24/25 10:16) Hs Troponin I W Calculations (01/24/25 13:16) Completed Orders - DANIELLA SALGADO RN LICENSED PRACTICAL Chest,Single View (01/24/25 10:16) Cbc/Diff (01/24/25 10:16) PBNP (01/24/25 10:16) Electrocardiogram (01/24/25 10:16) Hs Troponin I W Calculations (01/24/25 10:16) Hs Troponin I W Calculations (01/24/25 12:16) CMP (01/24/25 10:17) Normal Saline 1000ml (Sodium Chloride 10 (01/24/25 10:20) Prochlorperazine Inj (Compazine Inj) (01/24/25 10:25) Diphenhydramine Inj (Benadryl Inj.) (01/24/25 10:25) Acetaminophen 1,000mg/100ml Iv (Ofirmev (01/24/25 10:24) Medications Received in ER Medications (Trade) Dose Ordered Sig/Martha Route PRN Reason Start Time Stop Time Status Last Admin Dose Admin Sodium Chloride 1,000 ml @ 1,000 mls/hr ONCE ONCE IV 01/24/25 10:20 01/24/25 11:19 DC 01/24/25 10:37 1,000 MLS/HR (Compazine inj) 10 mg ONCE ONCE IV 01/24/25 10:25 01/24/25 10:26 DC 01/24/25 10:36 10 MG (Benadryl inj.) 12.5 mg ONCE ONCE IV 01/24/25 10:25 01/24/25 10:26 DC 01/24/25 10:37 12.5 MG Acetaminophen 100 ml @ 400 mls/hr ONCE STAT IV 01/24/25 10:24 01/24/25 10:38 DC 01/24/25 10:36 400 MLS/HR Vital Signs 01/24/25 01/24/25 01/24/25 01/24/25 10:12 10:22 10:30 11:00 Temp 99.4 99.1 Pulse 63 66 64 63 Resp 16 14 12 19 B/P (MAP) 146/64 147/75 (99) 128/69 (88) 141/63 (89) Pulse Ox 97 96 95 98 O2 Flow Rate 0 0 0 01/24/25 11:30 Temp 99.5 Pulse 58 Resp 16 B/P (MAP) 143/75 (97) Pulse Ox 98 O2 Flow Rate 0 Laboratory Tests Test 01/24/25 10:34 01/24/25 12:11 01/24/25 13:05 White Blood Count 8.8 Red Blood Count 4.45 L Hemoglobin 13.9 L Hematocrit 41.5 L Mean Corpuscular Volume 93.3 Mean Corpuscular Hemoglobin 31.3 H Mean Corpuscular Hemoglobin Concent 33.6 Red Cell Distribution Width 13.8 Platelet Count 225 Mean Platelet Volume 6.9 L Neutrophils (%) (Auto) 73.0 Lymphocytes (%) (Auto) 14.1 L Monocytes (%) (Auto) 12.5 H Eosinophils (%) (Auto) 0.2 Basophils (%) (Auto) 0.2 Neutrophils # (Auto) 6.4 Lymphocytes # (Auto) 1.2 Monocytes # (Auto) 1.1 H Eosinophils # (Auto) 0.0 Basophils # (Auto) 0.0 CBC Comment Sodium Level 134 L Potassium Level 4.0 Chloride Level 98 L Carbon Dioxide Level 31.6 Anion Gap 4 L Blood Urea Nitrogen 14 Creatinine 0.82 Estimated GFR/1.73 m2 > 90 BUN/Creatinine Ratio 17.1 Glucose Level 138 H Calcium Level 8.9 Total Bilirubin 1.9 H Aspartate Amino Transf (AST/SGOT) 24 Alanine Aminotransferase (ALT/SGPT) 17 Alkaline Phosphatase 55 Troponin I High Sensitivity 90 *H 103 *H Pro-B-Type Natriuretic Peptide 331 H Total Protein 6.8 Albumin 3.7 Globulin 3.1 Albumin/Globulin Ratio 1.2 Chemistry Comments Troponin I High Sens Percent Delta 14 Troponin I Hi Sens Absolute Change 13 EKG/XRAY/CT/US/VASC/MRI EKG : Additional Comment 1023 EKG interpreted to show RSR rate of 61, no ectopy. No ST segment elevation. Normal axis. QTC 416 ms. Chest X-Ray : Additional Comments DIAGNOSTIC RADIOLOGY Patient: NICHOLAS MCKEON Medical Record: [id number] [facility] : 1950, Age: 74 Sex: Male Location: ER Patient Status: REG ER Service Date/Time: 01/24/251015 Ordering Physician: DANIELLA SALGADO RN LICENSED PRACTICAL Exam: CHEST,SINGLE VIEW CHEST RADIOGRAPH Indication: CP Technique: Single frontal view of the chest was obtained Comparison: FINDINGS: The cardiac silhouette is unremarkable. The lungs demonstrate no pulmonary airspace consolidation. The pulmonary vasculature is unremarkable. There is no pleural effusion.. There is no pneumothorax. IMPRESSION: 1. No pulmonary airspace consolidation. Electronically Signed by:GAVIN OLIVER MD Date & Time: 01/24/25 1052 Dictated by: GAVIN OLIVER MD Dictation date and time: 01/24/25 1029 Primary Care Provider: NO PRIMARY CARE PROVIDER cc: DANIELLA SALGADO RN LICENSED PRACTICAL ~ Medical Decision Making Additional Information 74-year-old male with a history of a recent Watchman procedure presented due to symptoms of nausea, vomiting, dizziness. On exam, he was found to have some evidence of positional vertigo. Labs were unremarkable except for an elevated troponin of 90 with a repeat of 103 2 hrs later. Case was discussed with his pearl maker, Dr. Ramirez, who affirmed that it is appropriate to discharge him home. He is not concerned about the elevated troponin due to the patient's recent procedure. The patient was medicated with medication for nausea and given a L bolus of normal saline. After these measures, he reported feeling markedly improved and comfortable with going home. He was then discharged. Departure Time of Disposition: 13:29 Disposition: 01 HOME / SELF CARE / HOMELESS Impression: Primary Impression: Elevated troponin Discharge Instructions: Benign Positional Vertigo Additional Instructions: You were evaluated for your symptoms. You were treated for nausea and deh ydration. Your pearl maker was called, he was comfortable with you being discharged home. Please follow up with your primary care provider within the next week. Take the provided medication as needed for nausea. Stay well hydrated. Please return to the ER immediately if worse at any point. Referrals: NO PRIMARY CARE PROVIDER (PCP) Prescriptions ONDANSETRON ODT 4mg tablet (ONDANSETRON ODT) 4 Mg Tab.rapdis 1 TAB PO Q6H PRN PRN for nausea/vomiting for 4 Days, #16 TAB 0 Refills Prov: DANIELLA SALGADO NP 01/24/25 Education Educated: Patient, Family Educated regarding: diagnosis, treatment, prognosis, need for follow up Signature Scribe Signature: no scribe Attestation: The note accurately reflects work and decisions made by me.Daniella Casey NP 01/24/25 10:11 DANIELLA SALGADO NP Jan 24, 2025 10:09
[2025-01-24] MEDS ORDERED: ondansetron/PF 4mg/2ml inj IV ONE (10:20)
--- NOTE | 2025-01-24 10:25 | ELECTROCARDIOGRAPH REPORT ---
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
[2025-01-24] MEDS: acetaminophen 1,000mg/100ml IV 100 ML IV STA (10:36)
[2025-01-24] MEDS: proCHLORperazine 10 MG/2 ml inj IV ONE (10:36)
[2025-01-24] MEDS: normal saline 1000ml 1,000 ML IV ONE (10:37)
[2025-01-24] MEDS: diphenhydrAMINE 50 mg/ml inj IV ONE (10:37)
[2025-01-24 10:46] LABS: BASOPHILS % (AUTO) 0.2 % (0-1); EOSINOPHILS % (AUTO) 0.2 % (0-6); HEMATOCRIT 41.5 % (42.0-52.0); HEMOGLOBIN 13.9 g/dl (14.0-17.9); LYMPHOCYTES # (AUTO) 1.2 X10'3 (1.1-4.8); LYMPHOCYTES % (AUTO) 14.1 % (21-51); MEAN CORPUSCULAR HEMOGLOBIN 31.3 PG (27.0-31.0); MEAN CORPUSCULAR HGB CONC 33.6 g/dL (33.0-36.5); MEAN CORPUSCULAR VOLUME 93.3 FL (78-98); MEAN PLATELET VOLUME 6.9 FL (7.4-10.4); MONOCYTES # (AUTO) 1.1 X10'3 (0-0.9); MONOCYTES % (AUTO) 12.5 % (2-12); NEUTROPHILS # (AUTO) 6.4 X10'3 (1.8-7.7); PLATELET COUNT 225 X10'3 (140-440); RED BLOOD COUNT 4.45 X10'6 (4.70-6.10); RED CELL DISTRIBUTION WIDTH 13.8 % (11.5-14.5); WHITE BLOOD COUNT 8.8 X10'3 (4.5-11.0)
--- NOTE | 2025-01-24 10:54 | RADIOLOGY REPORT ---
CHEST RADIOGRAPH Indication: CP Technique: Single frontal view of the chest was obtained Comparison: FINDINGS: The cardiac silhouette is unremarkable. The lungs demonstrate no pulmonary airspace consolidation. Th e pulmonary vasculature is unremarkable. There is no pleural effusion.. There is no pneumothorax. IMPRESSION: 1. No pulmonary airspace consolidation.
[2025-01-24 11:03] LABS: ALANINE AMINOTRANSFERASE 17 U/L (12-78); ALBUMIN 3.7 G/DL (3.4-5.0); ALBUMIN/GLOBULIN RATIO 1.2 (1.1-1.5); ALKALINE PHOSPHATASE 55 IU/L (46-116); ANION GAP 4 (8-16); ASPARTATE AMINO TRANSFERASE 24 U/L (10-37); BILIRUBIN,TOTAL 1.9 MG/DL (0.1-1.0); BLOOD UREA NITROGEN 14 MG/DL (7-18); BUN/CREATININE RATIO 17.1 (10.0-20.0); CALCIUM 8.9 MG/DL (8.5-10.1); CHLORIDE 98 MMOL/L (99-107); CREATININE 0.82 MG/DL (0.60-1.10); GLUCOSE 138 MG/DL (70-104); SODIUM 134 MMOL/L (135-145); TOTAL CARBON DIOXIDE 31.6 MMOL/L (24-32); TOTAL PROTEIN 6.8 G/DL (6.4-8.2); eCRCL 82 ML/MIN; eGFR > 90 ML/MIN
[2025-01-24 11:11] LABS: PRO BRAIN NATRIURETIC PEPTIDE 331 PG/ML (0-125)
[2025-01-24] MEDS ORDERED: ONDA-243 PO (13:32)
[2025-01-24 13:43] VITALS: BP 129/64; PULSE 66; RESP 14; TEMP 98.4; O2SAT 95
== END 2025-01-24 13:47 | disposition home or self-care (01) ==
LOC: ER 10:07
DX: R79.89 Other specified abnormal findings of blood chemistry (principal); R11.2 Nausea with vomiting, unspecified; R19.7 Diarrhea, unspecified; R51.9 Headache, unspecified; E03.9 Hypothyroidism, unspecified; E11.9 Type 2 diabetes mellitus without complications; I25.10 Atherosclerotic heart disease of native coronary artery without angina pectoris; K21.9 Gastro-esophageal reflux disease without esophagitis; F32.A Depression, unspecified
CPT/HCPCS: 36415; 71045; 80053; 83880; 84484; 85025; 93005; 96365; 96375; 99285; J0131; J0780; J1200; J7030

== ENCOUNTER 2025-03-18 10:41 | Day surgery (SDC) | payer MEDICARE, MEDICAID ==
[2025-03-18] VITALS (11 sets, daily range): BP systolic 106–157; BP diastolic 56–87; PULSE 46–62; RESP 9–18; TEMP 97.9; O2SAT 93–99
[~2025-03-18] VITALS: Ht 172.7 cm; Wt 86.7 kg
[~2025-03-18 10:41] MED LIST changes: +ONDA-243 PO
[2025-03-18] MEDS ORDERED: FLUT16SP26 BOTHNARES (11:16)
[2025-03-18] MEDS ORDERED: FURO20TA4 PO (11:16)
[2025-03-18] MEDS ORDERED: ASPI-1397 PO (11:16)
[2025-03-18 11:45] LABS: MEAN PLATELET VOLUME 6.7 FL (7.4-10.4); RED CELL DISTRIBUTION WIDTH 14.2 % (11.5-14.5)
[2025-03-18 11:55] LABS: INR 1.0 INR
[2025-03-18 12:02] LABS: CREATININE 0.97 MG/DL (0.60-1.10); TOTAL CARBON DIOXIDE 28.2 MMOL/L (24-32); eCRCL 65 ML/MIN; eGFR 76 ML/MIN
[2025-03-18] MEDS: MIDAZolam 1mg/ml 10ml vial IV ONE (15:06)
[2025-03-18] MEDS: fentaNYL/PF 50MCG/1 ML 2ML syringe IV ONE (15:06)
[2025-03-18] MEDS ORDERED: ASPI81TA30 PO (15:17)
[2025-03-18] MEDS ORDERED: CLOP75TA33 PO (15:17)
--- NOTE | 2025-03-18 19:03 | CARDIOLOGY REPORT ---
APPROVED REPORT EXAM: Focused, limited transesophageal echocardiogram with color flow Doppler. Patient Location: Recovery RM 7 Blood Pressure: 106/56 mmHg Heart Rate: 53 bpm Rhythm: Sinus Indications POST WATCHMAN FLX CHRIS CLOSURE DEVICE IMPLANTATION FOLLOW UP EVALUATE DEVICE FOR THROMBUS, POSITION, AND SEAL 27 mm WATCHMAN FLX CHRIS CLOSURE DEVICE CHILD DAY CARE PROVIDER: Heath Ramirez MD Previous ECHO: 01/23/25, [facility], EF: 45-50; small L to R shunt s/p transseptal puncture, no residual f low around device. LEFT VENTRICLE Normal LV size and wall thickness. Overall systolic function is normal. LVEF is 55-60%. ATRIA LA appear mild to moderately dilated. Intact interatrial septum with small L to R shunt s/p transsept al puncture. Left upper pulmonary vein identified. Successfully occluded left atrial appendage with w ell visualized Watchman device well positioned without thrombus. No residual flow detected around dev ice in all views. PERICARDIUM Normal pericardium. No effusion. CONCLUSION Normal LV size and wall thickness. Overall systolic function is normal. LVEF is 55-60%. LA appear mil d to moderately dilated. Intact interatrial septum with small L to R shunt s/p transseptal puncture. Left upper pulmonary vein identified. Successfully occluded left atrial appendage with well visualize d Watchman device well positioned without thrombus. No residual flow detected around device in all vi ews. Normal pericardium. No effusion. Conclusion Normal LV size and wall thickness. Overall systolic function is normal. LVEF is 55-60%. LA appear mild to moderately dilated. Intact interatrial septum with small L to R shunt s/p transsep sheron puncture. Left upper pulmonary vein identified. Successfully occluded left atrial appendage wit h well visualized Watchman device well positioned without thrombus. No residual flow detected around device in all views. Normal pericardium. No effusion.
== END 2025-03-18 15:57 | disposition home or self-care (01) ==
LOC: SSTAY O 10:41
PROVIDERS: ATTEND Student in an Organized Health Care Education/Training Program
DX: I48.91 Unspecified atrial fibrillation (principal); I10 Essential (primary) hypertension; I25.10 Atherosclerotic heart disease of native coronary artery without angina pectoris; E78.00 Pure hypercholesterolemia, unspecified; Z95.818 Presence of other cardiac implants and grafts
CPT/HCPCS: 36415; 80053; 82948; 85025; 85610; 93312; 93325; J2250; J3010; J7030; Z7610